=== PATIENT | male | born 1985 ===

== ENCOUNTER 2017-07-02 10:23 | Emergency (ER) | payer OTHER ==
[2017-07-02 10:32] VITALS: BMI 23.1
[2017-07-02 10:34] VITALS: TEMP 98.8
[2017-07-02 11:35] LABS: BASO % 0.4 % (0.0-2.0); EOS # 0.1 K/uL (0.0-0.7); EOS % 1.9 % (0.0-4.0); HEMATOCRIT 48.2 % (35.0-51.0); LYMPH # 2.7 K/uL (1.0-4.3); LYMPH % 37.1 % (20.0-40.0); MEAN CELL VOLUME 88.8 fl (80.0-94.0); MEAN CORPUSCULAR HEMOGLOBIN 30.3 pg (27.0-31.0); MEAN CORPUSCULAR HGB CONC 34.1 g/dL (33.0-37.0); MEAN PLATELET VOLUME 9.4 fl (7.2-11.7); MONO # 0.6 K/uL (0.0-0.8); MONO % 8.1 % (0.0-10.0); NEUT # 3.8 K/uL (1.8-7.0); NEUT % 52.5 % (50.0-75.0); NRBC % 0.1 % (0.0-0.0); RED CELL DISTRIBUTION WIDTH 13.8 % (11.5-14.5); WHITE BLOOD COUNT 7.2 K/uL (4.8-10.8)
[2017-07-02 11:43] LABS: BLOOD UREA NITROGEN 20 mg/dl (9-20); CALCIUM 9.6 mg/dL (8.4-10.2); CARBON DIOXIDE 26 mmol/L (22-30); CHLORIDE 107 mmol/L (98-107); GFR AFRICAN-AMERICAN > 60; GLUCOSE,RANDOM 105 mg/dL (75-110); POTASSIUM 4.6 MMOL/L (3.6-5.0); SODIUM 144 mmol/l (132-148)
--- NOTE | 2017-07-02 12:14 | ED PDOC ---
HPI: Chest Pain Time Seen by Provider: 07/02/17 10:45 Chief Complaint (Nursing): Chest Pain Chief Complaint (Provider): Chest pain History Per: Patient History/Exam Limitations: no limitations Onset/Duration Of Symptoms: Days (1 week) Current Symptoms Are (Timing): Still Present Quality: "Pain" Additional Complaint(s): 31yo male, no known past medical history, presents to the ED for evaluation of chest and bilateral arm pain, which has been present for "years" but worsened over the past week. Patient states he does not have a PCP and this is his first visit regarding his symptoms. Patient states pain is non-exertional, worse with movement of left arm. Patient states pain and tingling to bilateral arms, bilateral scapular and shoulder pain. He denies any difficulty breathing, syncope, dizziness. Patient offers no other complaints. Past Medical History Reviewed: Historical Data, Nursing Documentation, Vital Signs Vital Signs: Last Vital Signs Temp 98.8 F 07/02/17 10:33 Pulse 69 07/02/17 13:43 Resp 17 07/02/17 10:33 BP 150/82 07/02/17 10:33 Pulse Ox 98 07/02/17 13:43 - Medical History PMH: No Chronic Diseases Denies: Chronic Kidney Disease - Surgical History Surgical History: No Surg Hx - Family History Family History: States: No Known Family Hx - Home Medications Home Medications: Ambulatory Orders Medication Instructions Recorded Naproxen 500 mg PO BID #10 tab 07/02/17 - Allergies Allergies/Adverse Reactions: Allergies Allergy/AdvReac Type Severity Reaction Status Date / Time No Known Allergies Allergy Verified 07/02/17 11:01 LILIAM Risk Score for UA/NSTEMI - LILIAM Risk Score Age > 64: NO 3 or more CAD Risk Factors: NO Known CAD (Stenosis greater than 50%): NO Aspirin use in past 7 days: NO Severe Angina: NO EKG ST changes greater than 0.5mm: NO Positive Cardiac Marker: NO LILIAM Score: 0 Risk %: 5% Wells Criteria for PE - Wells Criteria for Pulmonary Embolism Clinical Signs and Symptoms of DVT: No P.E is #1 Diagnosis, or Equally Likely: No Heart Rate >100: No Immobilization at least 3 days;Surgery previous 4 weeks: No Previous, objectively diagnosed PE or DVT: No Hemoptysis: No Malignancy w/treatment within 6 months, or palliative: No Total Score: 0 Review of Systems ROS Statement: Except As Marked, All Systems Reviewed And Found Negative Cardiovascular: Positive for: Chest Pain (left sided) Respiratory: Negative for: Shortness of Breath Musculoskeletal: Positive for: Shoulder Pain (bilateral), Arm Pain (bilateral), Back Pain (bilateral upper back) Neurological: Negative for: Dizziness, Other (syncope) Physical Exam - Reviewed Nursing Documentation Reviewed: Yes Vital Signs Reviewed: Yes - Physical Exam Appears: Positive for: Non-toxic, No Acute Distress Head Exam: Positive for: ATRAUMATIC, NORMAL INSPECTION, NORMOCEPHALIC Skin: Positive for: Warm Eye Exam: Positive for: EOMI, PERRL Neck: Positive for: Supple Cardiovascular/Chest: Positive for: Regular Rate, Rhythm. Negative for: Chest Non Tender (left sided chest wall tenderness noted. ) Respiratory: Positive for: Normal Breath Sounds. Negative for: Respiratory Distress Gastrointestinal/Abdominal: Positive for: Soft. Negative for: Tenderness Back: Positive for: Other (tenderness to bilateral upper back, mostly muscular) . Negative for: Vertebral Tenderness Extremity: Positive for: Tenderness (tenderness to bilateral shoulder), Capillary Refill (< 2 seconds). Negative for: Normal ROM (ROM at bilateral shoulder with pain), Deformity, Swelling Neurologic/Psych: Positive for: Alert, Oriented. Negative for: Motor/Sensory Deficits - Laboratory Results Result Diagrams: 07/02/17 10:50 07/02/17 10:50 - ECG ECG: Positive for: Interpreted By Me, Viewed By Me ECG Rhythm: Positive for: Normal QRS, Sinus Rhythm. Negative for: ST/T Changes Rate: 71 O2 Sat by Pulse Oximetry: 98 (RA) Pulse Ox Interpretation: Normal Medical Decision Making Medical Decision Making: Time: 1121 Impression: Chest pain, arm pain Differential: Musculoskeletal pain, possible radiculopathy on arms, muscle spasm , rule out ACS Plan: -- Toradol 30 mg IM -- Flexeril 10 mg PO -- CXR Reassess Time: 1301 Chest x-ray read by provider shows no acute disease. Scribe Attestation: Documented by Priscilla Ho acting as a scribe for Anant Santiago MD. Provider Attestation: All medical record entries made by the Scribe were at my direction and personally dictated by me. I have reviewed the chart and agree that the record accurately reflects my personal performance of the history, physical exam, medical decision making, and the department course for this patient. I have also personally directed, reviewed, and agree with the discharge instructions and disposition. Disposition - Clinical Impression Clinical Impression: Chest pain, Bilateral arm pain - Patient ED Disposition Is Patient to be Admitted: No Doctor Will See Patient In The: Office Counseled Patient/Family Regarding: Studies Performed, Diagnosis, Need For Followup - Disposition Referrals: LTAC, [facility] within [facility] [Outside] Disposition: Routine/Home Disposition Time: 13:41 Condition: GOOD Additional Instructions: Follow up with your PCP in 2-3 days. Prescriptions: Naproxen 500 mg PO BID #10 tab Instructions: Chest Pain (ED), Arm Pain (ED) Print Language: BULGARIAN
--- NOTE | 2017-07-02 13:34 | RAD ---
HISTORY: chest pain COMPARISON: No prior. TECHNIQUE: Chest PA and lateral FINDINGS: LUNGS: No active pulmonary disease. PLEURA: No significant pleural effusion identified. No pneumothorax apparent. CARDIOVASCULAR: Normal. OSSEOUS STRUCTURES: No significant abnormalities. VISUALIZED UPPER ABDOMEN: Normal. OTHER FINDINGS: None. IMPRESSION: No active disease.
[2017-07-02 13:59] VITALS: BP 124/78; PULSE 79; RESP 16; O2SAT 99
--- NOTE | 2017-07-03 07:34 | CARD ---
APPROVED REPORT EKG Measurement Heart [id number] <Conclusion> Normal sinus rhythm Normal ECG
== END 2017-07-02 13:59 | disposition home or self-care (01) ==
LOC: H.ER 10:23
DX: R07.89 Other chest pain (principal); M79.603 Pain in arm, unspecified
CPT/HCPCS: 71020; 80048; 84484; 85025; 93005; 96372; 99283; J1885